=== PATIENT | female | born 1950 | race Asian ===

== ENCOUNTER 2019-05-07 01:16 | Emergency (ER) | payer MEDICARE ==
--- NOTE | 2019-05-07 02:28 | RADIOLOGY REPORT (SQ) ---
CLINICAL HISTORY: congested cough x 2 weeks COMPARISON: None. 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 Lungs are clear without consolidation, atelectasis, mass or edema. There is no pleural effusion. There is no pneumothorax. There are no acute osseous findings. IMPRESSION: Clear lungs.
[2019-05-07 02:35] LABS: ABSOLUTE LYMPHOCYTES (AUTO) 1.5 10^3/uL (0.5-4.7); ABSOLUTE MONOCYTES (AUTO) 0.8 10^3/uL (0.1-1.4); ABSOLUTE NEUT (AUTO) 6.7 10^3/uL (1.7-8.2); BASOPHILS % (AUTO) 0.4 % (0-2); EOSINOPHILS % (AUTO) 0.5 % (0-6); HEMATOCRIT 39.3 % (36.0-47.0); HEMOGLOBIN 13.6 g/dL (12.0-15.5); LYMPHOCYTES % (AUTO) 16.3 % (13-45); MEAN CORPUSCULAR HEMOGLOBIN 28.2 pg (27.0-33.4); MEAN CORPUSCULAR HGB CONC 34.5 g/dL (32.0-36.0); MEAN CORPUSCULAR VOLUME 82 fl (80-97); PLATELET COUNT 331 10^3/uL (150-450); RED BLOOD COUNT 4.81 10^6/uL (3.72-5.28); SEGMENTED NEUTROPHILS % (AUTO) 73.8 % (42-78); TOTAL CELLS COUNTED % (AUTO) 100 %; WHITE BLOOD COUNT 9.1 10^3/uL (4.0-10.5)
[2019-05-07 02:37] LABS: APPEARANCE,URINE SLIGHTLY-CLOUDY; BILIRUBIN,URINE NEGATIVE (NEGATIVE); COLOR,URINE YELLOW; GLUCOSE, URINE NEGATIVE (NEGATIVE); KETONES,URINE NEGATIVE (NEGATIVE); LEUKOCYTE ESTERASE,URINE MODERATE (NEGATIVE); NITRITE,URINE POSITIVE (NEGATIVE); PROTEIN,URINE NEGATIVE (NEGATIVE); UROBILINOGEN,URINE NEGATIVE mg/dL (<2.0)
[2019-05-07 02:40] LABS: ALBUMIN 4.5 g/dL (3.5-5.0); ALKALINE PHOSPHATASE 85 U/L (38-126); ANION GAP 15 (5-19); ASPARTATE AMINO TRANSFERASE 23 U/L (14-36); BILIRUBIN,DIRECT 0.1 mg/dL (0.0-0.4); BILIRUBIN,TOTAL 0.9 mg/dL (0.2-1.3); BLOOD UREA NITROGEN 31 mg/dL (7-20); CALCIUM 9.6 mg/dL (8.4-10.2); CARBON DIOXIDE 27 mmol/L (22-30); CHLORIDE 85 mmol/L (98-107); CREATINE KINASE 110 U/L (30-135); GLUCOSE 212 mg/dL (75-110); TOTAL PROTEIN 7.8 g/dL (6.3-8.2)
[2019-05-07 02:52] LABS: CREATINE KINASE MB 2.96 ng/mL (<4.55); TROPONIN I < 0.012 ng/mL
--- NOTE | 2019-05-07 07:43 | EKG REPORT ---
SEVERITY:- NORMAL ECG - SINUS RHYTHM : Confirmed by: Marck Rose MD 07-May-2019 07:42:47
[2019-05-07] MEDS ORDERED: IPRATROPIUM/ALBUTEROL 0.5-2.5 MG/3 ML AMPUL NEB ONE (09:17)
[2019-05-07] MEDS ORDERED: PREDNISONE 20 MG TABLET PO ONE (09:17)
[2019-05-07] MEDS ORDERED: AZITHROMYCIN 250 MG TABLET PO ONE (09:17)
[2019-05-07] MEDS ORDERED: NORMAL SALINE 1000 ML 1,000 ML IV ONE (09:18)
[2019-05-07] MEDS ORDERED: CEFTRIAXONE 1 GM/D5W RTU 50 ML ONE (09:18)
[2019-05-07] MEDS ORDERED: CEFTRIAXONE 1 GM/D5W RTU 1 GM/50 ML RTUPB IV ONE ×2 (09:22→09:27)
[2019-05-07 10:57] VITALS: BP 142/81
--- NOTE | 2019-05-07 10:59 | ER Document Report ---
ED Dizziness/Weakness - General Chief Complaint: Syncope Stated Complaint: POSSIBLE SYNCOPE Time Seen by Provider: 05/07/19 08:10 Notes: Ms. Denis is a 68 yo female with no significant past medical history presenting to the ED for cough, shortness of breath. Patient endorsing generalized weakness for over the past week. She had a near syncopal episode but was caught by her son-in-law. Patient did not lose consciousness or hit her head at any point. She has had a cough ongoing the past 1 to 2 weeks which is nonproductive in nature. Patient denies any known ill contacts or recent travel. No chest pain, abdominal pain, vomiting or diarrhea. Patient does endorse increased urinary frequency without dysuria. TRAVEL OUTSIDE OF THE [place] IN LAST 30 DAYS: No - Related Data Allergies/Adverse Reactions: No Known Allergies Allergy (Unverified 05/07/19 09:30) Past Medical History - General Information source: Patient, Relative - Daughter - Social History Smoking Status: Never Smoker Chew tobacco use (# tins/day): No Frequency of alcohol use: None Family History: Reviewed & Not Pertinent Patient has suicidal ideation: No Patient has homicidal ideation: No Review of Systems - Review of Systems Constitutional: See HPI EENT: No symptoms reported Cardiovascular: No symptoms reported Respiratory: See HPI Gastrointestinal: No symptoms reported Genitourinary: See HPI Female Genitourinary: No symptoms reported Musculoskeletal: No symptoms reported Skin: No symptoms reported Hematologic/Lymphatic: No symptoms reported Neurological/Psychological: No symptoms reported Physical Exam - Vital signs Vitals: Temp Pulse Resp BP Pulse Ox 97.6 F 68 18 190/84 H 100 05/07/19 01:24 05/07/19 01:24 05/07/19 01:24 05/07/19 01:24 05/07/19 01:24 Interpretation: Normal - General General appearance: Appears well, Alert - HEENT Head: Normocephalic, Atraumatic Eyes: Normal Pupils: PERRL - Respiratory Respiratory status: No respiratory distress Chest status: Nontender Breath sounds: Normal Chest palpation: Normal - Cardiovascular Rhythm: Regular Heart sounds: Normal auscultation Murmur: No - Abdominal Inspection: Normal Distension: No distension Bowel sounds: Normal Tenderness: Nontender Organomegaly: No organomegaly - Back Back: Normal, Nontender - Extremities General upper extremity: Normal inspection, Nontender, Normal color, Normal ROM, Normal temperature General lower extremity: Normal inspection, Nontender, Normal color, Normal ROM, Normal temperature, Normal weight bearing. No: Kiki's sign - Neurological Neuro grossly intact: Yes Cognition: Normal Orientation: AAOx4 [place] Coma Scale Eye Opening: Spontaneous [place] Coma Scale Verbal: Oriented Purdys Coma Scale Motor: Obeys Commands Purdys Coma Scale Total: 15 Speech: Normal Motor strength normal: LUE, RUE, LLE, RLE Sensory: Normal - Psychological Associated symptoms: Normal affect, Normal mood - Skin Skin Temperature: Warm Skin Moisture: Dry Skin Color: Normal Course - Re-evaluation Re-evalutation: Patient is generally well-appearing and nontoxic. Initial vitals 05/07/19 9:20 After evaluated the patient, I reviewed all her blood work. CBC does not show significant leukocytosis or left shift. H&H is stable. However CMP is notable for increased BUN to creatinine ratio greater than 20. Patient's BUN is 31 with a creatinine of 1.34 today. She also has a sodium of 127. Patient appears cl inically dehydrated so will administer a liter of fluid. UA also shows leukocytes as well as nitrites with greater than 20 WBCs and only 1 squamous epithelial cell. This is consistent with a UTI. Patient will be ordered for ceftriaxone IV here. 05/07/19 11:23 Patient feels improved after IV fluids and neb. Repeat lung examination shows improvement in wheezing. 05/07/19 11:24 Patient given azithromycin for her ongoing persistent cough and will treat as bronchitis. Patient also given prednisone for wheezing. Will discharge with remaining course of azithromycin as well as remaining course of prednisone. Patient also discharged with albuterol inhaler. Patient given return precautions instructed follow-up with her primary care doctor as needed. 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 As an adult, you need to drink approximately 8 x 8 ounce glasses of water daily. I would recommend taking the remainder of the azithromycin for the next 4 days. Use the inhaler as needed as needed for cough or shortness of breath. You have also been prescribed for 4 additional days of prednisone. Be aware that prednisone can cause your glucose to be elevated. However this will improve after you are no longer on it. It is important that you not hold your urine and urinate as soon as you have the urge. It is also important to wipe from front to back to per right any UTIs from developing. Follow-up with your primary care doctor as needed. Prescriptions: Azithromycin 250 mg PO DAILY #4 tablet Prednisone [Deltasone 20 mg Tablet] 2 tab PO DAILY 4 Days #8 tablet Albuterol Sulfate [Proair HFA Inhalation Aerosol 8.5 gm MDI] 2 puff IH Q4H PRN #1 mdi PRN Reason:
== END 2019-05-07 11:57 | disposition home or self-care (01) ==
LOC: ER 01:16
DX: J40 Bronchitis, not specified as acute or chronic (principal); E86.0 Dehydration; N39.0 Urinary tract infection, site not specified; R31.9 Hematuria, unspecified; I44.0 Atrioventricular block, first degree; R55 Syncope and collapse; R05 Cough; R06.02 Shortness of breath; R53.1 Weakness; R35.0 Frequency of micturition; R06.2 Wheezing
CPT/HCPCS: 93005; 94640; 99284; 96365; 36415; 82553; 82550; 85025; 80053; 81001; 84484; 71046; 93010; A9270 ×3; J7030; J0696; J7512; J7620